=== PATIENT | female | born 1970 | race Caucasian/White ===

== ENCOUNTER 2017-03-03 15:47 | Emergency (ER) | payer OTHER | END 2017-03-03 17:15 | disposition home or self-care (01) | LOC: ER 15:47 | DX: S81.851A Open bite, right lower leg, initial encounter (principal); W54.0XXA Bitten by dog, initial encounter; Y92.410 Unspecified street and highway as the place of occurrence of the external cause | CPT/HCPCS: 90375; 90471; 90675; 90715; 99070; 99282-25 ==